=== PATIENT | female | born 1970 | race Hispanic/Latino ===

== ENCOUNTER 2018-10-03 14:51 | Emergency (ER) | payer BC, OTHER ==
[2018-10-03] MEDS ORDERED: LORAZEPAM 1 MG TABLET ONE (15:25)
[2018-10-03] MEDS ORDERED: NA CHLORIDE 0.9% 1,000 ML ONE (15:25)
[2018-10-03 15:36] LABS: Urine Blood NEGATIVE (NEG); Urine Glucose NEGATIVE (NEG); Urine Protein NEGATIVE (NEG)
[2018-10-03 15:39] LABS: Absolute Lymphocytes (CBC) 2.1 K/uL (0.7-4.9); Absolute Monocytes 0.5 K/uL (0.1-1.3); Absolute Neutrophil 4.2 K/uL (1.8-8.0); Basophils % 0.9 % (0-1.3); Eosinophils % 1.5 % (0-4.4); Hematocrit 39.6 % (36.0-45.0); MPV 8.1 fL (7.6-11.3); Monocytes % 7.4 % (3.3-12.3); RBC Red Blood Cell Count 4.24 M/uL (3.86-4.86)
[2018-10-03 15:50] LABS: Barbiturates NEGATIVE (NEGATIVE); Benzodiazepines NEGATIVE (NEGATIVE); Cocaine NEGATIVE (NEGATIVE); METHAMPHETAM NEGATIVE (NEGATIVE); Methadone NEGATIVE (NEGATIVE); Opiates NEGATIVE (NEGATIVE); Phencyclidine NEGATIVE (NEGATIVE); THC Cannibis NEGATIVE (NEGATIVE)
[2018-10-03 15:58] LABS: ALT/SGPT 29 U/L (12-78); AST/SGOT 13 U/L (15-37); Albumin 4.4 g/dL (3.4-5.0); Alkaline Phosphatase 77 U/L (45-117); BUN Blood Urea Nitrogen 23 mg/dL (7-18); Bicarbonate 24 mmol/L (21-32); Bilirubin Direct < 0.1 mg/dL (0-0.2); Bilirubin Total 0.4 mg/dL (0.2-1.0); Glucose Level 102 mg/dL (74-106); Magnesium 2.3 mg/dL (1.8-2.4); Potassium 3.7 mmol/L (3.5-5.1); Sodium Level 143 mmol/L (136-145); Troponin (Emerg Dept Use Only) < 0.02 ng/mL (0.0-0.045)
--- NOTE | 2018-10-03 16:00 | RAD REPORT ---
EXAM DESCRIPTION: RAD - Chest Single View - 10/03/2018 3:35 pm CLINICAL HISTORY: Weakness, shortness of breath, lower extremity trembling and weakness COMPARISON: None. TECHNIQUE: AP portable chest image was obtained 1533 hours . FINDINGS: Lungs are clear. Heart and vasculature are normal. No measurable pleural effusion and no p neumothorax. No acute bony abnormality seen. No acute aortic findings suspected. IMPRESSION: No acute cardiopulmonary process.
--- NOTE | 2018-10-03 16:47 | RAD REPORT ---
EXAM DESCRIPTION: CT - Head Brain Wo Cont - 10/03/2018 4:38 pm CLINICAL HISTORY: Headache, tremor COMPARISON: None. TECHNIQUE: Axial 5 mm thick images of the head were obtained without IV contrast. All CT scans are performed using dose optimization technique as appropriate and may include automated exposure control or mA/KV adjustment according to patient size. FINDINGS: No intracranial hemorrhage, mass, edema or shift of mid-line structures. No acute infarcti on changes seen. No abnormal extra-axial fluid collections. Ventricles are normal. Mastoid air cells and visualized portions of the paranasal sinuses are clear. No acute bony findings. IMPRESSION: Negative non-contrast CT head examination.
--- NOTE | 2018-10-03 17:02 | ER ---
Nurse's Notes [facility] Name: Carol Merino Age: 48 yrs Sex: Female : 1970 Arrival Date: 10/03/2018 Time: 14:55 Bed 27 Private MD: Diagnosis: Tremor, unspecified-generalized Presentation: 10/03 14:55 Presenting complaint: EMS states: Shakiness since yesterday. Patient report swellings ao in lower extremities also. Transition of care: patient was not received from another setting of care. Onset of symptoms is unknown. Risk Assessment: Do you want to hurt yourself or someone else? Patient reports no desire to harm self or others. Initial Sepsis Screen: Does the patient meet any 2 criteria? No. Patient's initial sepsis screen is negative. Does the patient have a suspected source of infection? No. Patient's initial sepsis screen is negative. Care prior to arrival: None. 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 - Social history:: Smoking status: Patient/guardian denies using tobacco, Patient uses alcohol, occasionally. Patient/guardian denies using IV drugs. - Ebola Screening: : Patient negative for fever greater than or equal to 101.5 degrees Fahrenheit, and additional compatible Ebola Virus Disease symptoms Patient denies exposure to infectious person Patient denies travel to an Ebola-affected area in the 21 days before illness onset. Screenin:59 Abuse screen: Denies threats or abuse. Denies injuries from another. Nutritional ao screening: No deficits noted. Tuberculosis screening: No symptoms or risk factors identified. Fall Risk None identified. Assessment: 16:45 General: Appears in no apparent distress. comfortable, Behavior is calm, cooperative. mg2 Pain: Complains of pain in chest Pain does not radiate. Pain currently is 2 out of 10 on a pain scale. Quality of pain is described as dull, Pain began gradually. Neuro: Level of Consciousness is awake, alert, obeys commands, Oriented to person, place, time, situation. Cardiovascular: Capillary refill < 3 seconds Patient's skin is warm and dry. Respiratory: Airway is patent Respiratory effort is even, unlabored, Respiratory pattern is regular, symmetrical. GI: No signs and/or symptoms were reported involving the gastrointestinal system. : Urine is clear. EENT: No signs and/or symptoms were reported regarding the EENT system. Derm: Skin is intact, is healthy with good turgor, Skin is pink, warm \T\ dry. normal. Musculoskeletal: Circulation, motion, and sensation intact. Capillary refill < 3 seconds, shaking. 17:31 Reassessment: Patient states feeling better. mg2 Vital Signs: 16:06 BP 113 / 76; Pulse 72; Resp 16; Temp 98.5(O); Pulse Ox 100% ; lt1 16:44 BP 105 / 60; Pulse 79; Resp 18; Temp 97.9; Pulse Ox 100% on R/A; mg2 ED Course: 14:55 Patient arrived in ED. ao 14:56 Triage completed. ao 14:57 Cortez Squires PA is PHCP. cp 14:57 Xavier Stewart MD is Attending Physician. cp 14:59 David Sánchez RN is Primary Nurse. mg2 14:59 Arm band placed on right wrist. Patient placed in an exam room, on oxygen, on pulse ao oximetry, Patient notified of wait time. 15:00 Patient has correct armband on for positive identification. Pulse ox on. NIBP on. ao 15:11 EKG done, by technical sales manager. reviewed by Cortez ORTEGA. sm3 15:25 No provider procedures requiring assistance completed. Inserted saline lock: 20 gauge mg2 in right antecubital area, using aseptic technique. Blood collected. 15:35 XRAY Chest (1 view) In Process Unspecified. EDMS 16:[address] ls3 16:37 CT completed. Patient tolerated procedure well. Patient moved back from CT. nj 16:37 CT Head Brain wo Cont In Process Unspecified. EDMS 17:31 IV discontinued, intact, bleeding controlled, No redness/swelling at site. Pressure mg2 dressing applied. Administered Medications: 15:24 Drug: NS 0.9% 1000 ml Route: IV; Rate: 1 bolus; Site: right antecubital; mg2 17:30 Follow up: Response: No adverse reaction; IV Status: Completed infusion mg2 15:24 Drug: Ativan 1 mg Route: PO; mg2 17:30 Follow up: Response: No adverse reaction; Marked relief of symptoms mg2 Outcome: 17:02 Discharge ordered by . joann 17:31 Discharged to home ambulatory, with family. mg2 17:31 Condition: stable 17:31 Discharge instructions given to patient, family, Instructed on discharge instructions, follow up and referral plans. medication usage, Demonstrated understanding of instructions, follow-up care, medications, Prescriptions given X 1. 17:32 Patient left the ED. mg2 Signatures: Dispatcher [employer] EDMS Cortez Squires PA PA cp Ortiz, Alex, RN RN Roderick Jeffery Michele, RN RN mg2 Lisa Loyd 3 Cassie Wei3 Mariana Meneses lt1
--- NOTE | 2018-10-03 17:02 | EDPHYS ---
Physician Documentation [facility] Name: Carol Merino Age: 48 yrs Sex: Female : 1970 Arrival Date: 10/03/2018 Time: 14:55 Bed 27 Private MD: ED Physician Xavier Stewart HPI: 10/03 15:16 This 48 yrs old Female presents to ER via EMS with complaints of generalized cp shaking. 15:16 Onset: The symptoms/episode began/occurred suddenly, today, at 13:00. cp 15:16 Severity of symptoms: in the emergency department the symptoms are unchanged despite cp home interventions. 15:16 The patient has experienced similar episodes in the past, but today's symptoms are cp worse, lasting longer. 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 - Social history:: Smoking status: Patient/guardian denies using tobacco, Patient uses alcohol, occasionally. Patient/guardian denies using IV drugs. - Ebola Screening: : Patient negative for fever greater than or equal to 101.5 degrees Fahrenheit, and additional compatible Ebola Virus Disease symptoms Patient denies exposure to infectious person Patient denies travel to an Ebola-affected area in the 21 days before illness onset. ROS: 15:20 Constitutional: Negative for body aches, chills, fever, poor PO intake. cp 15:20 Eyes: Negative for injury, pain, redness, and discharge. cp 15:20 ENT: Negative for drainage from ear(s), ear pain, sore throat, difficulty swallowing, difficulty handling secretions. 15:20 Cardiovascular: Negative for chest pain, edema, palpitations. 15:20 Respiratory: Negative for cough, shortness of breath, wheezing. 15:20 Abdomen/GI: Negative for abdominal pain, nausea, vomiting, and diarrhea, constipation, black/tarry stool, rectal bleeding. 15:20 Skin: Negative for rash. 15:20 Neuro: Positive for tremor, of the generalized, Negative for altered mental status, dizziness, headache, syncope, visual changes. 15:20 All other systems are negative. Exam: 15:17 ECG was reviewed by the Attending Physician. cp 15:25 Constitutional: The patient appears in no acute distress, alert, awake, cp non-diaphoretic, non-toxic, well developed, well nourished. 15:25 Head/Face: Normocephalic, atraumatic. cp 15:25 Eyes: Periorbital structures: appear normal, Pupils: equal, round, and reactive to light and accomodation, Extraocular movements: intact throughout, Conjunctiva: normal, Sclera: no appreciated abnormality, Lids and lashes: appear normal, bilaterally. 15:25 ENT: External ear(s): are unremarkable, Ear canal(s): are normal, clear, TM's: dullness, bilaterally, Nose: is normal, Mouth: Lips: moist, Oral mucosa: pink and intact, moist, Posterior pharynx: is normal, airway is patent, no erythema, no exudate. 15:25 Neck: ROM/movement: is normal, is supple, without pain, no range of motions limitations, no nuchal rigidity. 15:25 Chest/axilla: Inspection: normal, Palpation: is normal, no crepitus, no tenderness. 15:25 Cardiovascular: Rate: normal, Rhythm: regular, Heart sounds: murmur, not appreciated. 15:25 Respiratory: the patient does not display signs of respiratory distress, Respirations: normal, no use of accessory muscles, no retractions, no splinting, no tachypnea, labored breathing, is not present, Breath sounds: are clear throughout, no decreased breath sounds, no stridor, no wheezing. 15:25 Abdomen/GI: Inspection: abdomen appears normal, Palpation: abdomen is soft and non-tender, in all quadrants, voluntary guarding, is not appreciated, involuntary guarding, is not appreciated. 15:25 Skin: no rash present. 15:25 Neuro: Orientation: to person, place \T\ time. Mentation: is normal, Cerebellar function: Romberg testing is negative, normal finger to nose testing, Motor: moves all fours, strength is normal, Sensation: is normal, Abnormal movements: resting tremor, is located in the generalized. Vital Signs: 16:06 BP 113 / 76; Pulse 72; Resp 16; Temp 98.5(O); Pulse Ox 100% ; lt1 16:44 BP 105 / 60; Pulse 79; Resp 18; Temp 97.9; Pulse Ox 100% on R/A; mg2 MDM: 14:57 Patient medically screened. cp 15:30 Differential Diagnosis anxiety, cardiac arrythmia, electrolyte abnormality. cp 17:00 Data reviewed: vital signs, nurses notes, lab test result(s), EKG, radiologic studies, cp CT scan, plain films, I have discussed the patient's presentation/case with the attending Emergency Department Physician; and as a result, I will discharge patient. ED course: VSS. Patient reports symptoms are better. Will discharge to home for continued monitoring. 17:02 Counseling: I had a detailed discussion with the patient and/or guardian regarding: the cp historical points, exam findings, and any diagnostic results supporting the discharge/admit diagnosis, lab results, radiology results, the need for outpatient follow up, a family practitioner, to return to the emergency department if symptoms worsen or persist or if there are any questions or concerns that arise at home. 17:02 Response to treatment: the patient's symptoms have markedly improved after treatment. 05 15:00 Order name: UDS; Complete Time: 15:57 10/03 15:00 Order name: Basic Metabolic Panel; Complete Time: 16:01 10/03 16:01 Interpretation: Normal except: CL 112; BUN 23; GFR 44. / 15:00 Order name: CBC with Diff; Complete Time: 15:57 05/ 15:57 Interpretation: Reviewed. 05/ 15:00 Order name: LFT's; Complete Time: 16:01 /02 16:01 Interpretation: Normal except: AST 13; GLOB 3.6. 05/ 15:00 Order name: Magnesium; Complete Time: 16:01 05/ 15:00 Order name: Troponin (emerg Dept Use Only); Complete Time: 16:01 cp / 15:00 Order name: Urine Dipstick-Ancillary (obtain specimen); Complete Time: 15:25 cp 05/ 15:00 Order name: XRAY Chest (1 view); Complete Time: 16:15 05/02 16:15 Interpretation: Report review. 05 15:00 Order name: EKG; Complete Time: 15:01 10/03 15:22 Order name: Urine Dipstick--Ancillary (enter results); Complete Time: 15:57 eb 10/03 15:22 Order name: Urine --Ancillary (enter results); Complete Time: 15:57 10/03 16:20 Order name: CT Head Brain wo Cont; Complete Time: 16:50 10/03 16:51 Interpretation: Report reviewed. 10/03 15:00 Order name: Urine Test (obtain specimen); Complete Time: 15:24 10/03 15:00 Order name: Cardiac monitoring; Complete Time: 15:24 10/03 15:00 Order name: EKG - Nurse/Tech; Complete Time: 15:24 10/03 15:00 Order name: IV Saline Lock; Complete Time: 15:24 10/03 15:00 Order name: Labs collected and sent; Complete Time: 15:24 10/03 15:00 Order name: O2 Per Protocol; Complete Time: 15:24 10/03 15:00 Order name: O2 Sat Monitoring; Complete Time: 15:24 10/03 16:01 Order name: Vital Signs; Complete Time: 16:07 cp EC:17 Rate is 84 beats/min. Rhythm is regular. [place] interval is normal. QRS interval is normal. cp QT interval is normal. Interpreted by me. Reviewed by me. Administered Medications: 15:24 Drug: NS 0.9% 1000 ml Route: IV; Rate: 1 bolus; Site: right antecubital; mg2 17:30 Follow up: Response: No adverse reaction; IV Status: Completed infusion mg2 15:24 Drug: Ativan 1 mg Route: PO; mg2 17:30 Follow up: Response: No adverse reaction; Marked relief of symptoms mg2 Disposition: 17:38 Co-signature as Attending Physician, Xavier Stewart MD. rn Disposition: 10/03/18 17:02 Discharged to Home. Impression: Tremor, unspecified - generalized. - Condition is Stable. - Discharge Instructions: Tremor. - Prescriptions for Ativan 1 mg Oral Tablet - take 1 tablet by ORAL route every 8 hours As needed; 15 tablet. - Medication Reconciliation Form, Thank You Letter, Antibiotic Education, Prescription Opioid Use, Work release form form. - Follow up: Private Physician; When: 1 - 2 days; Reason: Recheck today's complaints. - Problem is new. - Symptoms have improved. Signatures: Dispatcher [employer] EDXavier Benitez MD MD rn Cortez Squires PA PA cp Mario Alberto Zhong, RN RN David Hogdes RN RN mg2 Corrections: (The following items were deleted from the chart) 17:32 17:02 10/03/2018 17:02 Discharged to Home. Impression: Tremor, unspecified - mg2 generalized. Condition is Stable. Forms are Medication Reconciliation Form, Thank You Letter, Antibiotic Education, Prescription Opioid Use. Follow up: Private Physician; When: 1 - 2 days; Reason: Recheck today's complaints. Problem is new. Symptoms have improved. cp
--- NOTE | 2018-10-03 17:05 | EKG ---
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
== END 2018-10-03 17:32 | disposition home or self-care (01) ==
LOC: ER 14:51
DX: R25.1 Tremor, unspecified (principal); F41.9 Anxiety disorder, unspecified
CPT/HCPCS: 36415; 70450; 71045; 80048; 80076; 80307; 81003; 81025; 83735; 84484; 85025; 93005; 96360; 96361; 99285; J7030